=== PATIENT | male | born 1965 | race Caucasian/White ===

== ENCOUNTER → 2017-06-16 | Outpatient (CLI) | payer OTHER ==
[~2017-06-16] MED LIST: ACETAMINOPHEN325 M1 PO; ADVAIR 250-501 EACH IH; ALLOPURINOL 10100 M1 PO; ALTACE PO; ASA5UEC PO; COLACE100 MG PO; DUONEB 2.5-0.5 M3 ML IH; FISH OIL 1,0001 EAC5 PO; FLOMAX PO; IRON325 PO; LASIX 40 MG TAB40 M1 PO; LEVEMIR SQ; MIRALAX255 GM PO; NEXIUM40 MG PO; NORCO 5-325 TA1 EACH PO; ONDANSETRON HCL4 M2 PO; PACERONE 200 M200 MG PO; PLAVIX 75 MG TA75 MG PO; SENNA PO; SIMVASTATIN40 MG PO; TOBRAMYCIN SULFA5 ML OP
== END ==
LOC: RAD 08:45
DX: M79.672 Pain in left foot (principal)